=== PATIENT | male | born 1975 | race Caucasian/White ===

== ENCOUNTER 2018-08-13 11:19 | Emergency (ER) | payer SELFPAY ==
[~2018-08-13] VITALS: Ht 170.2 cm; Wt 77.1 kg
[2018-08-13 11:31] VITALS: BP 133/89
== END 2018-08-13 14:45 | disposition home or self-care (01) ==
LOC: ED 11:19
DX: R51 Headache (principal); H53.8 Other visual disturbances; R20.0 Anesthesia of skin
CPT/HCPCS: 82962